=== PATIENT | male | born 1980 | race Two or more races ===

== ENCOUNTER 2019-08-08 22:08 | Emergency (ER) | payer MEDICAID ==
[~2019-08-08] VITALS: Ht 167.6 cm; Wt 95.3 kg
--- NOTE | 2019-08-08 22:15 | NUR ---
ED Nurse Note: CALLED PT TO BE TRIAGED. PT NOT PRESENT AT WAITING ROOM
[2019-08-08 22:35] VITALS: BP 129/85
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
--- NOTE | 2019-08-08 22:48 | NUR ---
ED Nurse Note: Xray done at bedside.
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
[2019-08-08] MEDS ORDERED: IBUPROFEN600 MG ORAL (23:33)
[2019-08-08] MEDS ORDERED: CYCLOBENZAPRINE10 MG ORAL (23:33)
[2019-08-09 00:30] VITALS: BP 129/85
--- NOTE | 2019-08-09 00:30 | NUR ---
ED Nurse Note: Pt cleared by ERMD for discharge. DC instructions/prescription was given and explained to pt and verbalized understanding of teachings. All medical deviecs such as ID band removed. Pt is AAO x4, ambulatory and left with all personal belongings. Accompanied by friends.
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
== END 2019-08-09 00:30 | disposition home or self-care (01) ==
LOC: EMR 22:30
DX: S39.012A Strain of muscle, fascia and tendon of lower back, initial encounter (principal); S16.1XXA Strain of muscle, fascia and tendon at neck level, initial encounter; S80.01XA Contusion of right knee, initial encounter; R07.9 Chest pain, unspecified; V43.52XA Car driver injured in collision with other type car in traffic accident, initial encounter; Y92.415 Exit ramp or entrance ramp of street or highway as the place of occurrence of the external cause
CPT/HCPCS: 70450; 71045; 72125; 73562; Z7502; 99284